=== PATIENT | male | born 1955 | race Caucasian/White ===

== ENCOUNTER 2022-09-23 15:27 | Observation (INO) ==
[2022-09-23 16:06] LABS: Basophils % 0.4 % (0.0-0.8); Eosinophils # 0.1 10*3/uL (0.0-0.87); Eosinophils % 1.3 % (0.00-10.9); Hematocrit 40.6 VOL% (42.0-52.0); Hemoglobin 13.5 GM/DL (14.0-18.0); Immature Granulocytes % 0.8 %; Immature Granulocytes Absolute 0.06 #; Lymphocytes # 2.1 10*3/uL (1.4-4.0); Mean Corpuscular HGB Conc 33.3 GM/DL (32-36); Mean Corpuscular Volume 89.4 FL (87-102); Mean Platelet Volume 10.7 FL (9.6-12.0); Monocytes # 0.6 10*3/uL (0.11-0.8); Monocytes % 7.2 % (1.7-12.7); Neutrophils % 64.3 % (38.7-73.9); Platelet Count 194 T/CUMM (130-400); Red Blood Count 4.54 MC/CUMM (3.8-5.5); Red Cell Distribution Width 12.9 % (9.3-17.3); White Blood Count 7.9 T/CUMM (4-12)
[2022-09-23 16:18] LABS: Albumin 3.8 G/DL (3.4-5.0); Bilirubin,Total 0.8 MG/DL (0.20-1.00); Calcium 9.1 MG/DL (8.5-10.1); Osmolality,Calculated 288.1 MOS/KG (273-304)
[2022-09-23] MEDS ORDERED: MAGNESIUM SULF RIDER 2 GM/50 ML PREMIX IV PRN (17:25)
[2022-09-23] MEDS ORDERED: MAGNESIUM SULF RIDER 4 GM/100 ML PREMIX IV PRN (17:25)
[2022-09-23] MEDS ORDERED: NITROGLYCERIN SL 0.4 MG TABLET SL PRN (17:29)
[2022-09-23] MEDS ORDERED: ENOXAPARIN 100 MG/ML SYRINGE SUBCUT STA (17:41)
[2022-09-23] MEDS ORDERED: ROSUVASTATIN 20 MG TABLET PO SCH (21:00)
[2022-09-23] MEDS ORDERED: amLODIPine 5 MG TABLET PO SCH (21:00)
[2022-09-23] MEDS: TICAGRELOR 90 MG TABLET PO SCH (21:14)
[2022-09-24] MEDS: TICAGRELOR 90 MG TABLET PO SCH (08:31)
[2022-09-24] MEDS ORDERED: VERAPAMIL 5 MG/2 ML VIAL ONE (08:46)
[2022-09-24] MEDS ORDERED: NITROGLYCERIN DRIP 50 MG/250 ML BOTTLE IV ONE (08:46)
[2022-09-24] MEDS ORDERED: MIDAZOLAM 2 MG/2 ML VIAL ONE (08:57)
[2022-09-24] MEDS ORDERED: HYDROmorphone 1 MG/1 ML SYRINGE ONE (08:57)
[2022-09-24] MEDS ORDERED: PANTOPRAZOLE 40 MG TABLET PO SCH (09:00)
[2022-09-24] MEDS ORDERED: LOSARTAN 50 MG TABLET PO SCH (09:00)
[2022-09-24] MEDS ORDERED: ASPIRIN EC 81 MG TABLET PO SCH (09:00)
[2022-09-24] MEDS ORDERED: ENOXAPARIN 60 MG/0.6 ML SYRINGE ONE (09:05)
[2022-09-24] MEDS ORDERED: diphenhydrAMINE 50 MG/1 ML VIAL ONE (09:16)
[2022-09-24] MEDS ORDERED: TICAGRELOR 90 MG TABLET ONE (09:53)
[2022-09-24 10:32] LABS: Basophils % 0.2 % (0.0-0.8); Eosinophils # 0.2 10*3/uL (0.0-0.87); Eosinophils % 1.9 % (0.00-10.9); Hematocrit 41.7 VOL% (42.0-52.0); Hemoglobin 13.7 GM/DL (14.0-18.0); Immature Granulocytes % 0.2 %; Immature Granulocytes Absolute 0.02 #; Lymphocytes # 2.4 10*3/uL (1.4-4.0); Lymphocytes % 28.4 % (21.2-54.2); Mean Corpuscular HGB Conc 32.9 GM/DL (32-36); Mean Corpuscular Volume 90.7 FL (87-102); Mean Platelet Volume 10.4 FL (9.6-12.0); Monocytes # 0.6 10*3/uL (0.11-0.8); Monocytes % 7.1 % (1.7-12.7); Neutrophils % 62.2 % (38.7-73.9); Platelet Count 191 T/CUMM (130-400); White Blood Count 8.4 T/CUMM (4-12)
[2022-09-24 11:24] LABS: Albumin 3.8 G/DL (3.4-5.0); Bilirubin,Total 0.8 MG/DL (0.20-1.00); Calcium 9.1 MG/DL (8.5-10.1); Osmolality,Calculated 282.3 MOS/KG (273-304); Potassium 4.9 MMOL/L (3.5-5.1); Risk Ratio 2.38; Total Protein 6.7 G/DL (6.4-8.2)
[2022-09-24 12:36] VITALS: BP 150/81
== END 2022-09-24 14:16 | disposition home or self-care (01) ==
LOC: N.ED 15:27 → N.EDINP 17:25 → INTOOBSV 17:25 → N.EDINP 09-24 05:30 → N.TELEN 09-24 06:29
PROVIDERS: ADMIT Internal Medicine Cardiovascular Disease; ATTEND Internal Medicine Cardiovascular Disease
PROC: CLCCHCL (ICD-10-PCS; 2022-09-24 09:15)